=== PATIENT | male | born 1980 | race Caucasian/White ===

== ENCOUNTER → 2018-08-15 | Outpatient (REF) ==
--- NOTE | 2018-08-16 02:53 | REP ---
Clinical: Degenerative shoulder pain . Technique: Internal rotation, external rotation, and Y view. Findings: No acute fracture or dislocation. The acromioclavicular and glenohumeral joints are intact. No periarticular calcifications or degenerative changes are appreciated. Sub acromial space is normal. Surrounding soft tissues are unremarkable. Impression: Normal left shoulder radiographs. Electronically Signed by Jaiden Calderón MD 08/16/2018 02:45 A
== END ==
LOC: M SMT 13:10
PROVIDERS: ATTEND Internal Medicine
DX: Z02.71 Encounter for disability determination (principal)